=== PATIENT | female | born 1990 | race African-American/Black ===

== ENCOUNTER 2024-11-04 11:00 | Emergency (ER) | payer MEDICAID ==
[~2024-11-04] VITALS: Ht 165.1 cm; Wt 86.0 kg
[2024-11-04 11:02] VITALS: O2SAT 100
[2024-11-04 11:05] VITALS: BP 115/81; PULSE 81; RESP 16; TEMP 36.9; O2SAT 100
[2024-11-04 11:33] LABS: BASOPHILS % 0.3 % (0.0-2.0); EOSINOPHILS % 2.4 % (0.0-5.0); HEMATOCRIT. 37.1 % (36.0-48.0); HEMOGLOBIN. 12.5 g/dL (12.0-16.0); LYMPHOCYTES % 30.2 % (20.0-50.0); MEAN PLATELET VOLUME 8.2 fl (7.4-10.4); MONOCYTES % 10.8 % (2.0-8.0); NEUTROPHILS % 56.3 % (40.0-76.0); PLATELET 262 x1000/uL (130-400); RED BLOOD CELL COUNT 4.11 mill/uL (4.2-5.4); RED CELL DISTRIBUTION WIDTH 13.9 % (11.6-14.6)
[2024-11-04 11:51] LABS: CREATININE 0.9 mg/dL (0.6-1.0); UREA NITROGEN BLOOD 7 mg/dL (9-23)
[2024-11-04 12:03] LABS: HCG SCREEN NEGATIVE
[2024-11-04] MEDS ORDERED: FAMOTIDINE 20MG TABLET PO SCH (13:00)
[2024-11-04] MEDS ORDERED: ONDANSETRON 4MG ODT PO SCH (13:00)
[2024-11-04] MEDS ORDERED: MAGNESIUM/ALUMINUM HYDROXIDE/SIMETHICONE 30ML UDC PO SCH (13:00)
[2024-11-04 13:02] LABS: ASPARTATE AMINOTRANSFERASE 19 IU/L (<34); BILIRUBIN DIRECT 0.1 mg/dL (<=3.0); BILIRUBIN TOTAL 0.4 mg/dL (0.1-1.0); PROTEIN TOTAL 7.3 g/dL (6.0-8.3)
[2024-11-04 14:20] LABS: CLARITY URINE CLEAR (CLEAR); COLOR URINE YELLOW (YELLOW); PH URINE 7.0 (4.5-8.0); SPECIFIC GRAVITY URINE 1.025 (1.005-1.030)
[2024-11-04 14:21] LABS: GLUCOSE URINE NEGATIVE (NEGATIVE); KETONES URINE TRACE (NEGATIVE); LEUKOCYTE ESTERASE URINE TRACE (NEGATIVE); NITRITE URINE NEGATIVE (NEGATIVE); OCCULT BLOOD URINE NEGATIVE (NEGATIVE); PROTEIN URINE NEGATIVE (NEGATIVE); UROBILINOGEN URINE 2.0 E.U./dL (0.2-1.0)
[2024-11-04 14:30] LABS: MUCUS URINE TRACE /lpf (< = 2+); SQUAMOUS EPITHELIAL CELL URINE 3+ /lpf (RARE/1+)
[2024-11-04 14:31] LABS: BACTERIA URINE TRACE; RBC URINE 0-2 /hpf (0-2); WBC URINE 0-2 /hpf (0-2)
[2024-11-04] MEDS ORDERED: FAMO-135 MT (17:01)
[2024-11-04] MEDS ORDERED: MAG-55 MT (17:01)
== END 2024-11-04 13:10 | disposition left against medical advice (07) ==
LOC: ER 11:00
DX: R10.11 Right upper quadrant pain (principal); Z55.6 Problems related to health literacy; Z79.899 Other long term (current) drug therapy
CPT/HCPCS: 36415; 80048; 80076; 81003; 81025; 84703; 85025; 99283

== ENCOUNTER 2024-11-04 13:33 | Emergency (ER) | payer MEDICAID ==
[2024-11-04] MEDS: DICYCLOMINE HCL 10MG/ML 2ML VIAL IM ONE (14:15)
[2024-11-04] MEDS: MAGNESIUM/ALUMINUM HYDROXIDE/SIMETHICONE 30ML UDC PO ONE (15:13)
[2024-11-04] MEDS: KETOROLAC 30MG/ML VIAL IM ONE ×2 (15:13→15:15)
[2024-11-04] MEDS: ONDANSETRON 4MG ODT PO ONE (15:13)
[2024-11-04] MEDS: FAMOTIDINE 20MG TABLET PO ONE (15:14)
[2024-11-04 15:19] VITALS: BP 130/77; PULSE 74; RESP 16; TEMP 36.6; O2SAT 100
[2024-11-04] MEDS ORDERED: NALOXONE HCL 0.4MG/ML VIAL IV PRN (16:15)
[2024-11-04] MEDS ORDERED: FAMO-135 MT (17:01)
[2024-11-04] MEDS ORDERED: MAG-55 MT (17:01)
[2024-11-04] MEDS: MORPHINE SULFATE 2 MG/ML INJ (NOT FOR IM USE) IV SCH (17:06)
[2024-11-04] MEDS ORDERED: IOHEXOL-300 100 ML BOTTLE ONE (20:01)
== END 2024-11-04 17:50 | disposition home or self-care (01) ==
LOC: ER 13:33
DX: K80.62 Calculus of gallbladder and bile duct with acute cholecystitis without obstruction (principal); Z79.899 Other long term (current) drug therapy
CPT/HCPCS: 81025; 74177; 76705; 96372; 96374; 99285; Q9967; Q0162; J0500; J1885; J2270; Z7610 ×3